=== PATIENT | male | born 1950 ===

== ENCOUNTER 2018-02-26 16:49 | Emergency (ER) | payer MEDICARE, OTHER ==
[2018-02-26 16:49] VITALS: BMI 20.3
[2018-02-26] MEDS ORDERED: Sodium Chloride 0.9% 1,000 ML IV STA (17:21)
[2018-02-26 18:15] LABS: BASO % 0.7 % (0.0-2.0); EOS # 0.1 K/uL (0.0-0.7); EOS % 1.4 % (0.0-4.0); HEMOGLOBIN 14.2 g/dL (12.0-18.0); LYMPH # 1.8 K/uL (1.0-4.3); LYMPH % 39.5 % (20.0-40.0); MEAN CELL VOLUME 94.1 fl (80.0-94.0); MEAN CORPUSCULAR HEMOGLOBIN 32.3 pg (27.0-31.0); MEAN CORPUSCULAR HGB CONC 34.3 g/dL (33.0-37.0); MEAN PLATELET VOLUME 7.2 fl (7.2-11.7); MONO # 0.4 K/uL (0.0-0.8); NEUT # 2.3 K/uL (1.8-7.0); NEUT % 49.4 % (50.0-75.0); NRBC % 0.1 % (0.0-0.0); RBC 4.41 Mil/uL (4.40-5.90); RED CELL DISTRIBUTION WIDTH 15.1 % (11.5-14.5); WHITE BLOOD COUNT 4.6 K/uL (4.8-10.8)
[2018-02-26 18:24] LABS: BLOOD UREA NITROGEN 10 mg/dl (9-20); CALCIUM 9.4 mg/dL (8.4-10.2); GFR NON-AFRICAN AMERICAN > 60
--- NOTE | 2018-02-26 19:13 | ED PDOC ---
HPI: Psych/Substance Abuse Time Seen by Provider: 02/26/18 17:03 Chief Complaint (Nursing): Alcohol Ingestion Chief Complaint (Provider): Alcohol Ingestion History Per: Patient History/Exam Limitations: intoxication Onset/Duration Of Symptoms: Mins ([employer]) Current Symptoms Are (Timing): Still Present Modifying Factor(s): Alcohol Additional Complaint(s): 67 year old male presents to the ED via police for evaluation after he was found publicly intoxicated. He admits to drinking 2 beers tonight. Patient is emotionally labile; laughing one second then crying then singing. Denies medical history, recent travel, illnesses, sick contacts. PMD: none provided Past Medical History Reviewed: Historical Data, Nursing Documentation, Vital Signs Vital Signs: Last Vital Signs Temp 98.2 F 02/26/18 16:51 Pulse 80 02/26/18 16:51 Resp 18 02/26/18 16:51 BP 173/97 H 02/26/18 16:51 Pulse Ox 98 02/26/18 16:51 - Medical History PMH: Depression, HTN (no medications) Denies: Diabetes, Hepatitis, HIV, Chronic Kidney Disease, Seizures, Sexually Transmitted Disease - Surgical History Surgical History: No Surg Hx - Family History Family History: States: Unknown Family Hx - Immunization History Hx Tetanus Toxoid Vaccination: No Hx Influenza Vaccination: No Hx Pneumococcal Vaccination: No - Home Medications Home Medications: Ambulatory Orders Medication Instructions Recorded No Known Home Med 01/18/18 - Allergies Allergies/Adverse Reactions: Allergies Allergy/AdvReac Type Severity Reaction Status Date / Time No Known Allergies Allergy Verified 01/18/18 13:44 Review of Systems ROS Statement: Except As Marked, All Systems Reviewed And Found Negative Physical Exam - Reviewed Nursing Documentation Reviewed: Yes Vital Signs Reviewed: Yes - Physical Exam Appears: Positive for: No Acute Distress (disheveled and smells like alcohol) Head Exam: Positive for: ATRAUMATIC, NORMAL INSPECTION, NORMOCEPHALIC Skin: Positive for: Normal Color, Warm, Dry Eye Exam: Positive for: EOMI, Normal appearance, PERRL Neck: Positive for: Normal, Painless ROM, Supple Cardiovascular/Chest: Positive for: Regular Rate, Rhythm. Negative for: Murmur Respiratory: Positive for: Normal Breath Sounds. Negative for: Respiratory Distress Gastrointestinal/Abdominal: Positive for: Normal Exam, Soft. Negative for: Tenderness Extremity: Positive for: Normal ROM (x 4). Negative for: Deformity Neurologic/Psych: Positive for: Alert, Oriented - Laboratory Results Result Diagrams: 02/26/18 18:00 02/26/18 18:00 - ECG O2 Sat by Pulse Oximetry: 98 (RA) Pulse Ox Interpretation: Normal Medical Decision Making Medical Decision Makin:20 MDM: Basic labs, including alcohol, ordered. IV Fluids Reevaluate until clinically sober. 19:00 --Patient will be signed out to Dr. Hernandez Scribe Attestation: Documented by Sonal Umana acting as a scribe for Tali Coronado MD Provider Scribe Attestation: All medical record entries made by the Scribe were at my direction and personally dictated by me. I have reviewed the chart and agree that the record accurately reflects my personal performance of the history, physical exam, medical decision making, and the department course for this patient. I have also personally directed, reviewed, and agree with the discharge instructions and disposition. Disposition - Disposition
--- NOTE | 2018-02-26 19:36 | ED PDOC ---
- Laboratory Results Result Diagrams: 02/26/18 18:00 02/26/18 18:00 - ECG O2 Sat by Pulse Oximetry: 98 (RA) Pulse Ox Interpretation: Normal Medical Decision Making Medical Decision Makin:00 --Patient endorsed to this provider pending clinical sobriety. 300 Patient awake, alert, steady gait Well appearing for discharge ------- Scribe Attestation: Documented by Sonal Umana acting as a scribe for Bk Hernandez MD Provider Scribe Attestation: All medical record entries made by the Scribe were at my direction and personally dictated by me. I have reviewed the chart and agree that the record accurately reflects my personal performance of the history, physical exam, medical decision making, and the department course for this patient. I have also personally directed, reviewed, and agree with the discharge instructions and disposition. Disposition - Clinical Impression Clinical Impression: Alcohol use - POA Present On Arrival: None - Disposition Referrals: Alcoholics Anonymous [Outside] Disposition: Routine/Home Disposition Time: 03:00 Forms: [employer] (Tajik)
[2018-02-27 02:44] VITALS: BP 155/94; PULSE 89; RESP 20; TEMP 97.8
[2018-02-27 04:51] VITALS: O2SAT 98
== END 2018-02-27 03:00 | disposition home or self-care (01) ==
LOC: H.ER 16:49
DX: F10.10 Alcohol abuse, uncomplicated (principal); Z86.59 Personal history of other mental and behavioral disorders; I10 Essential (primary) hypertension; Y90.7 Blood alcohol level of 200-239 mg/100 ml
CPT/HCPCS: 80048; 82948; 85025; 99283; G0480; J7030

== ENCOUNTER 2018-07-31 23:52 | Emergency (ER) | payer MEDICARE, OTHER ==
[2018-07-31 23:52] VITALS: BMI 20.3
[2018-07-31 23:58] VITALS: BP 127/78; PULSE 100; RESP 18; TEMP 97.9; O2SAT 99
--- NOTE | 2018-08-01 02:33 | ED PDOC ---
HPI: General Adult Time Seen by Provider: 08/01/18 01:10 Chief Complaint (Nursing): Lower Extremity Problem/Injury Chief Complaint (Provider): eval Additional Complaint(s): 67 y/o male brought in by EMS for evaluation. As per EMS, patient was sleeping and when they approached him he said he "didn't feel well". Patient sleeping upon entering exam room; upon awakening denies acute medical or psychiatric complaints Past Medical History Reviewed: Historical Data, Nursing Documentation, Vital Signs Vital Signs: Last Vital Signs Temp 97.9 F 07/31/18 23:54 Pulse 100 H 07/31/18 23:54 Resp 18 07/31/18 23:54 BP 127/78 07/31/18 23:54 Pulse Ox 99 07/31/18 23:54 - Medical History PMH: Depression, HTN (no medications) Denies: Diabetes, Hepatitis, HIV, Chronic Kidney Disease, Seizures, Sexually Transmitted Disease - Family History Family History: States: Unknown Family Hx - Immunization History Hx Tetanus Toxoid Vaccination: No Hx Influenza Vaccination: No Hx Pneumococcal Vaccination: No - Home Medications Home Medications: Ambulatory Orders Medication Instructions Recorded Naproxen 375 mg PO Q6 #14 tablet 05/01/18 Potassium Chloride 20 meq PO DAILY #10 tab.er.prt 05/01/18 - Allergies Allergies/Adverse Reactions: Allergies Allergy/AdvReac Type Severity Reaction Status Date / Time No Known Allergies Allergy Verified 05/01/18 19:30 Review of Systems ROS Statement: Except As Marked, All Systems Reviewed And Found Negative Physical Exam - Reviewed Nursing Documentation Reviewed: Yes Vital Signs Reviewed: Yes - Physical Exam Appears: Positive for: Well, Non-toxic, No Acute Distress (unkempt) Head Exam: Positive for: ATRAUMATIC, NORMAL INSPECTION, NORMOCEPHALIC Skin: Positive for: Normal Color Eye Exam: Positive for: Normal appearance ENT: Positive for: Normal ENT Inspection Cardiovascular/Chest: Positive for: Regular Rate, Rhythm Respiratory: Positive for: Normal Breath Sounds Gastrointestinal/Abdominal: Positive for: Normal Exam Back: Positive for: Normal Inspection Extremity: Positive for: Normal ROM Neurological/Psych: Positive for: Awake, Alert, Oriented - ECG O2 Sat by Pulse Oximetry: 99 - Progress ED Course And Treament: Patient awake, alert, oriented x 3 without acute complaints. Patient requires no further intervention in the ED and is stable for d/c at this time Disposition - Clinical Impression Clinical Impression: Malingering - Patient ED Disposition Is Patient to be Admitted: No Counseled Patient/Family Regarding: Diagnosis, Need For Followup - Disposition Disposition: Routine/Home Disposition Time: 05:02 Condition: STABLE Print Language: SPA
== END 2018-08-01 06:29 | disposition home or self-care (01) ==
LOC: H.ER 23:52
DX: Z76.5 Malingerer [conscious simulation] (principal); Z86.59 Personal history of other mental and behavioral disorders; I10 Essential (primary) hypertension

== ENCOUNTER 2018-09-12 07:48 | Emergency (ER) | payer MEDICARE ==
[2018-09-12 07:53] VITALS: BMI 22.6
[2018-09-12 07:56] VITALS: O2SAT 99
--- NOTE | 2018-09-12 09:19 | ED PDOC ---
HPI: General Adult Time Seen by Provider: 09/12/18 08:05 Chief Complaint (Nursing): Psychiatric Evaluation Chief Complaint (Provider): Medical Clearance History Per: Patient History/Exam Limitations: no limitations Current Symptoms Are (Timing): Better Additional Complaint(s): 67 year old undomiciled male with chronic back pain, substance abuse and depression was brought to the ED via EMS after [place] police called regarding the patient who was sitting on the sidewalk wrapped in a blanket. In the room, patient denies any complains and states he feels fine. Also denies fever, chills, chest pain, shortness of breath, abdominal pain, nausea, vomiting, diarrhea or any psychiatrist complaints. PMD: No Family Provider Past Medical History Reviewed: Historical Data, Nursing Documentation, Vital Signs Vital Signs: Last Vital Signs Temp 98.2 F 09/12/18 07:55 Pulse 84 09/12/18 07:55 Resp 18 09/12/18 07:55 BP 137/87 09/12/18 07:55 Pulse Ox 99 09/12/18 07:55 - Medical History PMH: Depression, HTN (no medications) Denies: Diabetes, Hepatitis, HIV, Chronic Kidney Disease, Seizures, Sexually Transmitted Disease - Family History Family History: States: Unknown Family Hx - Immunization History Hx Tetanus Toxoid Vaccination: No Hx Influenza Vaccination: No Hx Pneumococcal Vaccination: No - Home Medications Home Medications: Ambulatory Orders Medication Instructions Recorded Naproxen 375 mg PO Q6 #14 tablet 05/01/18 Potassium Chloride 20 meq PO DAILY #10 tab.er.prt 05/01/18 - Allergies Allergies/Adverse Reactions: Allergies Allergy/AdvReac Type Severity Reaction Status Date / Time No Known Allergies Allergy Verified 05/01/18 19:30 Review of Systems ROS Statement: Except As Marked, All Systems Reviewed And Found Negative Constitutional: Negative for: Fever, Chills Cardiovascular: Negative for: Chest Pain Respiratory: Negative for: Shortness of Breath Gastrointestinal: Negative for: Nausea, Vomiting, Abdominal Pain, Diarrhea Psych: Negative for: Suicidal ideation, Other (homicidal ideation ) Physical Exam - Reviewed Nursing Documentation Reviewed: Yes Vital Signs Reviewed: Yes - Physical Exam Appears: Positive for: Well (unkempt and poor hygiene), Non-toxic, No Acute Distress Head Exam: Positive for: ATRAUMATIC, NORMAL INSPECTION, NORMOCEPHALIC Skin: Positive for: Normal Color, Warm, Dry. Negative for: Rash Eye Exam: Positive for: EOMI, Normal appearance, PERRL ENT: Positive for: Normal ENT Inspection Neck: Positive for: Normal, Painless ROM, Supple. Negative for: Decreased ROM Cardiovascular/Chest: Positive for: Regular Rate, Rhythm. Negative for: Murmur Respiratory: Positive for: Normal Breath Sounds. Negative for: Respiratory Distress Gastrointestinal/Abdominal: Positive for: Normal Exam, Soft. Negative for: Tenderness Back: Positive for: Normal Inspection. Negative for: L CVA Tenderness, R CVA Tenderness Extremity: Positive for: Normal ROM. Negative for: Tenderness, Pedal Edema, Deformity Neurological/Psych: Positive for: Awake, Alert, Normal Tone, Oriented (x3) - ECG O2 Sat by Pulse Oximetry: 99 (RA) Pulse Ox Interpretation: Normal Medical Decision Making Medical Decision Making: Time: 08:05 Patient showered and is resting comfortably in the room. He denies any complaints and his vitals are normal.denies any complaints. Upon provider reevaluation patient is feeling better, is medically stable, and requires no further treatment in the ED at this time. Patient will be discharged home. Counseling was provided and all questions were answered regarding diagnosis. There is agreement to discharge plan and follow up as an outpatient in 1-2 days. Return if symptoms persist or worsen. Scribe Attestation: Documented by Deepti Norman, acting as a scribe for Robert Wolf MD. Provider Scribe Attestation: All medical record entries made by the Scribe were at my direction and personally dictated by me. I have reviewed the chart and agree that the record accurately reflects my personal performance of the history, physical exam, medical decision making, and the department course for this patient. I have also personally directed, reviewed, and agree with the discharge instructions and disposition. Disposition - Clinical Impression Clinical Impression: Homeless - Patient ED Disposition Is Patient to be Admitted: No Counseled Patient/Family Regarding: Studies Performed, Diagnosis, Need For Followup - Disposition Referrals: [facility] [Outside] [facility] [Outside] Disposition: Routine/Home Disposition Time: 09:00 Condition: IMPROVED Additional Instructions: follow up as an outpatient in 1-2 days return to the ED with any worsening or concerning symptoms Instructions: How to Wash Your Hands Properly Forms: [employer] (Pashto)
[2018-09-12 10:23] VITALS: BP 122/80; PULSE 78; RESP 16; TEMP 97.8
== END 2018-09-12 10:27 | disposition home or self-care (01) ==
LOC: H.ER 07:48
DX: G89.29 Other chronic pain (principal); Z86.59 Personal history of other mental and behavioral disorders; Z00.8 Encounter for other general examination; I10 Essential (primary) hypertension; Z59.0 Homelessness; Z79.899 Other long term (current) drug therapy